=== PATIENT | female | born 1980 | race Native Hawaiian/Other Pacific Islander ===

== ENCOUNTER 2018-07-22 08:13 | Outpatient (CLI) | payer OTHER ==
[2018-07-22 08:35] LABS: PLATELET COUNT 250 K/uL (152-353)
[2018-07-22 08:53] LABS: POTASSIUM 4.2 mmol/L (3.6-5.2)
== END 2018-07-22 19:22 | disposition home or self-care (01) ==
LOC: LABW 08:13
PROVIDERS: Physician Assistant
DX: G44.209 Tension-type headache, unspecified, not intractable (principal); M79.7 Fibromyalgia; E78.6 Lipoprotein deficiency
CPT/HCPCS: 36415; 80053; 80061; 83036; 83735; 84439; 84443; 85027; 86430

== ENCOUNTER 2018-12-04 15:10 | Emergency (ER) | payer OTHER ==
[~2018-12-04] VITALS: Ht 165.1 cm; Wt 70.3 kg
[2018-12-04 15:22] VITALS: BP 120/71; TEMP 99.3
== END 2018-12-04 16:00 | disposition home or self-care (01) ==
LOC: ED 15:10
PROC: 2W3DX1Z Immobilization of Left Lower Arm using Splint (ICD-10-PCS; principal; 2018-12-04)
PROC: 2W3CX1Z Immobilization of Right Lower Arm using Splint (ICD-10-PCS; 2018-12-04)
DX: G56.03 Carpal tunnel syndrome, bilateral upper limbs (principal); M79.641 Pain in right hand
CPT/HCPCS: 99283

== ENCOUNTER 2019-03-14 10:42 | Emergency (ER) | payer OTHER ==
[~2019-03-14] VITALS: Ht 165.1 cm; Wt 69.9 kg
[2019-03-14 10:51] VITALS: TEMP 98.5
[2019-03-14 12:01] LABS: PLATELET COUNT 254 K/uL (152-353)
[2019-03-14 13:13] VITALS: BP 136/84
== END 2019-03-14 13:13 | disposition home or self-care (01) ==
LOC: ED 10:42
PROVIDERS: Hospitalist
DX: N39.0 Urinary tract infection, site not specified (principal); R19.7 Diarrhea, unspecified; R10.32 Left lower quadrant pain
CPT/HCPCS: 36415; 80053; 81000; 81025; 82150; 83690; 85027; 99283

== ENCOUNTER 2021-01-16 08:40 | Emergency (ER) | payer OTHER ==
[~2021-01-16] VITALS: Ht 165.1 cm; Wt 68.0 kg
[2021-01-16 08:45] VITALS: TEMP 97.3
[2021-01-16 09:30] LABS: PLATELET COUNT 230 K/uL (152-353)
[2021-01-16 09:37] LABS: POTASSIUM 4.3 mmol/L (3.6-5.2)
[2021-01-16 11:00] VITALS: BP 122/78
== END 2021-01-16 11:05 | disposition home or self-care (01) ==
LOC: ED 08:40
PROVIDERS: Family Medicine
DX: J32.2 Chronic ethmoidal sinusitis (principal); M62.838 Other muscle spasm; F17.210 Nicotine dependence, cigarettes, uncomplicated
CPT/HCPCS: 80053; 85027; 99283

== ENCOUNTER 2021-04-09 18:39 | Emergency (ER) | payer OTHER ==
[~2021-04-09] VITALS: Ht 165.1 cm; Wt 76.2 kg
[2021-04-09 20:01] VITALS: BP 133/75; TEMP 98.3
== END 2021-04-09 20:01 | disposition home or self-care (01) ==
LOC: ED 18:39
DX: I80.8 Phlebitis and thrombophlebitis of other sites (principal)
CPT/HCPCS: 96372; 99283; J1885

== ENCOUNTER 2021-06-10 10:33 | Emergency (ER) | payer OTHER ==
[~2021-06-10] VITALS: Ht 165.1 cm; Wt 77.1 kg
[2021-06-10 10:38] VITALS: BP 118/70; TEMP 98.7
== END 2021-06-10 12:50 | disposition home or self-care (01) ==
LOC: ED 10:33
DX: S29.012A Strain of muscle and tendon of back wall of thorax, initial encounter (principal); X58.XXXA Exposure to other specified factors, initial encounter; Y92.89 Other specified places as the place of occurrence of the external cause
CPT/HCPCS: 96372; 99283; J1885

== ENCOUNTER 2021-07-09 16:34 | Emergency (ER) | payer OTHER ==
[~2021-07-09] VITALS: Ht 165.1 cm; Wt 78.0 kg
[2021-07-09 19:10] VITALS: BP 167/80; TEMP 98.3
== END 2021-07-09 19:10 | disposition home or self-care (01) ==
LOC: ED 16:34
DX: U07.1 COVID-19 (principal); J12.82 Pneumonia due to coronavirus disease 2019; R93.89 Abnormal findings on diagnostic imaging of other specified body structures; F17.210 Nicotine dependence, cigarettes, uncomplicated
CPT/HCPCS: 99282; 99283

== ENCOUNTER 2021-08-07 21:36 | Emergency (ER) | payer OTHER ==
[~2021-08-07] VITALS: Ht 165.1 cm; Wt 77.1 kg
[2021-08-07 22:48] LABS: PLATELET COUNT 244 K/uL (152-353)
[2021-08-07 23:04] LABS: POTASSIUM 3.9 mmol/L (3.6-5.2)
[2021-08-08 01:40] VITALS: BP 120/71; TEMP 98.6
== END 2021-08-08 01:40 | disposition home or self-care (01) ==
LOC: ED 21:36
PROVIDERS: Emergency Medicine
DX: R42 Dizziness and giddiness (principal); J33.9 Nasal polyp, unspecified; F17.210 Nicotine dependence, cigarettes, uncomplicated
CPT/HCPCS: 36415; 80053; 81000; 85027; 93005; 99283

== ENCOUNTER 2022-01-10 16:12 | Outpatient (CLI) | payer OTHER | END 2022-01-10 19:04 | disposition home or self-care (01) | LOC: RESP 16:12 | PROVIDERS: ATTEND Nurse Practitioner Family | DX: R00.1 Bradycardia, unspecified (principal) | CPT/HCPCS: 93005; 93225 ==

== ENCOUNTER 2022-07-24 16:43 | Outpatient (CLI) | payer OTHER | END 2022-07-24 19:33 | disposition home or self-care (01) | LOC: RAD 16:43 | PROVIDERS: ATTEND Nurse Practitioner Family | DX: R09.89 Other specified symptoms and signs involving the circulatory and respiratory systems (principal) ==

== ENCOUNTER 2022-10-07 10:42 | Outpatient (CLI) | payer OTHER | END 2022-10-07 20:17 | disposition home or self-care (01) | LOC: US 10:42 | PROVIDERS: ATTEND Radiology Diagnostic Radiology | DX: N64.4 Mastodynia (principal) ==

== ENCOUNTER 2022-12-23 09:01 | Outpatient (CLI) | payer OTHER | END 2022-12-23 18:54 | disposition home or self-care (01) | LOC: RESP 09:01 | PROVIDERS: ATTEND Nurse Practitioner Family | DX: R05.3 Chronic cough (principal) ==

== ENCOUNTER 2023-02-24 15:03 | Outpatient (CLI) | payer OTHER | END 2023-02-24 19:27 | disposition home or self-care (01) | LOC: RAD 15:03 | PROVIDERS: ATTEND Nurse Practitioner Family | DX: R05.1 Acute cough (principal) ==

== ENCOUNTER 2023-03-21 10:04 | Outpatient (CLI) | payer OTHER | END 2023-03-21 19:16 | disposition home or self-care (01) | LOC: LABW 10:04 | PROVIDERS: ATTEND Nurse Practitioner Family | DX: N92.5 Other specified irregular menstruation (principal) | CPT/HCPCS: 36415; 84702 ==